=== PATIENT | female | born 1955 | race Caucasian/White ===

== ENCOUNTER 2020-04-17 11:07 | Observation (INO) | payer BC ==
[~2020-04-17] VITALS: Ht 170.2 cm; Wt 134.7 kg
[~2020-04-17 11:07] MED LIST: APAP500 PO; DILTIAZEM 24HR180 M2 PO; HYDROCHLOROTH12.5 M2 PO; LISINOPRIL20 MG PO; PRADAXA150 MG PO
[2020-04-17 11:13] VITALS: BP 130/86
[2020-04-17 12:59] LABS: ABSOLUTE NEUTROPHILS 4.5 thou/uL (1.4-8.2); BASOPHILS 0.5 % (0.0-2.0); EOSINOPHILS 2.5 % (0.0-3.0); HEMATOCRIT 43.7 % (37.0-47.0); HEMOGLOBIN 14.5 gm/dL (12.0-15.0); LYMPHOCYTES 9.1 % (24.0-44.0); MCH 29.6 pg (26.0-34.0); MCHC 33.1 g/dL (28.0-37.0); MCV 89.4 fL (80.0-100.0); MONOCYTES 8.2 % (1.0-8.0); PLATELET COUNT 126 thou/uL (150-400); POLYS 79.7 % (36.0-66.0); RBC 4.89 mil/uL (4.20-5.00); RDW 15.4 % (10.5-14.5); WBC 5.6 thou/uL (4.0-11.0)
[2020-04-17 13:09] LABS: ANION GAP 8 mmol/L (7-16); BUN 20 mg/dL (7-18); CALCIUM 9.5 mg/dL (8.5-10.1); CHLORIDE 106 mmol/L (98-107); CO2 26 mmol/L (21-32); CREATININE 1.1 mg/dL (0.6-1.0); GLUCOSE 133 mg/dL (74-106); POTASSIUM 3.7 mmol/L (3.5-5.1); SODIUM 140 mmol/L (136-145)
[2020-04-17 13:18] LABS: APTT 37.5 Seconds (24.5-32.8); INR 1.3; PROTIME 12.8 Seconds (9.3-11.4)
[2020-04-17 13:19] LABS: ALBUMIN 3.5 g/dL (3.4-5.0); MAGNESIUM 1.8 mg/dL (1.8-2.4); SGOT 13 U/L (15-37); SGPT 20 U/L (30-65); TOTAL BILIRUBIN 0.8 mg/dL (0.2-1.0); TROPONIN-I <0.06 ng/mL (<0.06)
[2020-04-17 13:34] LABS: CHOLESTEROL 140 mg/dL (<200); HDL CHOLESTEROL 49 mg/dL (>40); LDL CHOLESTEROL 72 mg/dL (<100); TC:HDL 2.9 Ratio (Not establshd); TRIGLYCERIDE 96 mg/dL (<150); VLDL 19 mg/dL (<40)
[2020-04-17 14:05] VITALS: BP 130/86
--- NOTE | 2020-04-17 14:16 | NUR ---
ATTMEPTED TO CALL REPORT, WAS TOLD HER NURSE IS "AT LUNCH" AND WILL CALL ME BACK
--- NOTE | 2020-04-17 14:17 | EKG ---
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
--- NOTE | 2020-04-17 16:30 | NUR ---
PT ARRIVED TO UNIT FROM ER AT APPROX 1500. PT ALERT AND ORIENTED.VSS. UP AD JANE, INDEPENDENT FOR SELF. ADMISSION COMPLETE. SUPERVISOR KEY[employer] ASSEMBLY NOTIFIED OF LAB RESULTS. NEW ROOM NUMBER OBTAINED, REPORT CALLED TO ARLEEN STEVENS. PT TRANSFERRED WITH ALL BELONGINGS.
[2020-04-17] MEDS ORDERED: FLECAINIDE ACE100 MG PO (16:35)
[2020-04-17] MEDS ORDERED: METOPROLOL SUCC25 M1 PO (16:35)
[2020-04-17] MEDS ORDERED: ACYCLOVIR 400400 MG PO (16:36)
[2020-04-17] MEDS ORDERED: ATORVASTATIN CA10 MG PO (16:36)
[2020-04-17 16:47] VITALS: BP 143/84
--- NOTE | 2020-04-17 18:21 | NUR ---
PATIENT ADMITTED TO UNIT AT THIS TIME. RESPIRATIONS ARE EVEN NON LABORED. PLEASANT WITH CARE. STARTED ON AMIO DRIP. HR BEING MONITORED.
[2020-04-17 21:07] VITALS: BP 124/82
--- NOTE | 2020-04-17 23:12 | NUR ---
spoke with vance, ordered to continue the 1 mg/ hr amiodarone gtt through the night.
[2020-04-18 05:57] VITALS: BP 147/81
--- NOTE | 2020-04-18 05:58 | NUR ---
CONTINUES ON ROOM AIR, KEEPING O2 SATS GREATER SANCHEZ 95%. SHE AWAKENS EASILY AND IS CHEERFUL. CONTINUES ON TE IV AMIODARONE. NPO PAST MIDNIGHT. SHE IS AWARE OF POSSIBLE CARDIOVERSION THIS AM. CAREPLAN REVIEWED.
--- NOTE | 2020-04-18 06:01 | NUR ---
SITE OF INFILTRATION OF AMIODARONE IS STABLE, LESS RED AND NOT PAINFUL, SOFT TO TOUCH.
[2020-04-18 07:30] VITALS: BP 130/77
[2020-04-18] MEDS ORDERED: PACERONE 200 M200 M1 PO (09:56)
[2020-04-18 11:10] VITALS: BP 141/86
[2020-04-18 15:27] VITALS: BP 145/98
--- NOTE | 2020-04-18 15:41 | NUR ---
ASSUMED CARE OF PT AT 0700. PT ALERT AND ORIENTED X4 IN NO ACUTE DISTRESS. ASYMPTOMATIC. AMIO GTT D/Cd PER CCARDIO - STARTED ON PO. RESWABBED PER ORDER. ANTICIPATE D/C TODAY.
--- NOTE | 2020-04-18 15:52 | NUR ---
DIMA notified by nursing that pt had questions regarding her insurance. DIMA reviewed chart. Pt was admitted from home due to a-fib. Pt had positive COVID test and was transferred to from yesterday afternoon. Pt was on amio gtt and transitioned to PO today. Pt is medically stable for discharge home today and will follow up with cardiology as an outpatient. DIMA spoke with pt via phone. Introduced role of SW. Pt is alert/orientated x 4. Pt wanted to make sure that her insurance was correct on file. DIMA confirmed with pt that she has [employer], which is on file. Discussed with UR RN. Pt to discharge home today. No discharge needs identified. DIMA is available to assist should needs arise.
[2020-04-18 16:44] VITALS: BP 145/98
== END 2020-04-18 17:24 | disposition home or self-care (01) ==
LOC: ER 11:07 → EROBS 14:54 → 3W 14:54 → 2N 14:55 → 3W 16:21
PROVIDERS: Emergency Medicine; ADMIT Hospitalist; ATTEND Hospitalist
DX: U07.1 COVID-19 (principal); I48.91 Unspecified atrial fibrillation; I10 Essential (primary) hypertension; E78.00 Pure hypercholesterolemia, unspecified; E66.9 Obesity, unspecified; C91.10 Chronic lymphocytic leukemia of B-cell type not having achieved remission; Z90.710 Acquired absence of both cervix and uterus; Z98.890 Other specified postprocedural states
CPT/HCPCS: 10879

== ENCOUNTER → 2020-05-31 | Outpatient (CLI) | payer BC ==
[~2020-05-31] VITALS: Ht 172.7 cm; Wt 134.7 kg
[~2020-05-31] MED LIST changes: +ACYCLOVIR 400400 MG PO; +AMIODARONE HCL400 MG PO; +ATORVASTATIN CA10 MG PO; +FLECAINIDE ACE100 MG PO; +METOPROLOL SUCC25 M1 PO; +PACERONE 200 M200 M1 PO; +SYMBICORT160 MCG/4. INH
--- NOTE | ~2020-05-31 | P ---
[facility] [place] [address] [place] [address] PROCEDURE REPORT Name: PEDRO PABLO BRUSH Room #: REG [facility] Uzma#: [id number] Admission: 05/31/20 Attend Phys: José Luis Hawk Discharge: Date of : 57 Report #: [id number] THIS REPORT FOR: cc: Pedro Pablo Snyder MD,Pedro Pablo Hawk,José Luis Luu MD ~ DATE OF SERVICE: 05/31/2020 INDICATION: Symptomatic paroxysmal atrial fibrillation. PROCEDURES: 1. Electrical cardioversion. 2. Supervision of conscious sedation. SEDATION: Conscious sedation, 4 mg of IV Versed and 25 mg of IV Demerol. GRID CASTER: Latrice Hawk MD BRIEF DESCRIPTION OF PROCEDURE: The patient was brought to the cardiac catheterization prep and hold. An informed consent was obtained previously. AP paddles were then placed. Conscious sedation was initiated. Utilizing synchronized shock biphasic at 200 joules, an initial shock was performed, which did not convert the atrial fibrillation persisted. Immediately subsequent to this first shock, a second shock at 200 joules biphasic in AP paddles with 20 pounds of pressure in the chest manually was utilized and converted the patient to sinus bradycardia with PACs. She was monitored continuously with oximetric and electrocardiographic monitoring throughout the procedure. Post-procedure, she was allowed to recover. The patient tolerated the procedure well. COMPLICATIONS: None. RECOMMENDATIONS: Routine post-cardioversion protocol. By: 1016 Lou Hawk MD /john
[2020-05-31 08:25] VITALS: BP 144/91
[2020-05-31 09:07] LABS: HEMATOCRIT 43.1 % (37.0-47.0); MCHC 32.5 g/dL (28.0-37.0); MCV 89.3 fL (80.0-100.0); RBC 4.83 mil/uL (4.20-5.00); RDW 15.5 % (10.5-14.5); WBC 3.5 thou/uL (4.0-11.0)
[2020-05-31 09:12] LABS: CALCIUM 9.5 mg/dL (8.5-10.1); CREATININE 1.2 mg/dL (0.6-1.0); POTASSIUM 4.1 mmol/L (3.5-5.1)
[2020-05-31 09:18] LABS: ALBUMIN 3.8 g/dL (3.4-5.0); TOTAL BILIRUBIN 0.7 mg/dL (0.2-1.0); TOTAL PROTEIN 6.2 g/dL (6.4-8.2)
== END | disposition home or self-care (01) ==
LOC: CATH 08:02
PROVIDERS: ATTEND Internal Medicine
DX: I48.0 Paroxysmal atrial fibrillation (principal); I10 Essential (primary) hypertension; E78.5 Hyperlipidemia, unspecified; E66.09 Other obesity due to excess calories; Z98.890 Other specified postprocedural states; Z79.899 Other long term (current) drug therapy; Z79.01 Long term (current) use of anticoagulants; Z90.710 Acquired absence of both cervix and uterus; Z90.49 Acquired absence of other specified parts of digestive tract

== ENCOUNTER → 2021-06-30 | Outpatient (CLI) | payer OTHER, MEDICARE | LOC: SJCVC 09:13 | PROVIDERS: ATTEND Internal Medicine | DX: R94.31 Abnormal electrocardiogram [ECG] [EKG] (principal); I48.19 Other persistent atrial fibrillation; C91.10 Chronic lymphocytic leukemia of B-cell type not having achieved remission; E78.5 Hyperlipidemia, unspecified; E04.1 Nontoxic single thyroid nodule; Z79.899 Other long term (current) drug therapy; Z90.710 Acquired absence of both cervix and uterus; Z98.890 Other specified postprocedural states; I10 Essential (primary) hypertension ==

== ENCOUNTER → 2021-07-10 | Outpatient (CLI) | payer OTHER, MEDICARE | LOC: SJCVCIMAG 07-07 10:30 | PROVIDERS: ATTEND Internal Medicine Cardiovascular Disease | DX: Z01.810 Encounter for preprocedural cardiovascular examination (principal); I51.7 Cardiomegaly; I48.91 Unspecified atrial fibrillation ==

== ENCOUNTER → 2021-07-30 | Outpatient (CLI) | payer OTHER, MEDICARE ==
[~2021-07-30] VITALS: Ht 170.2 cm; Wt 136.5 kg
[~2021-07-30] MED LIST changes: +ALLEGRA-D 24 H1 EACH PO; +LEVO-T25 MCG PO; +LISINOPRIL10 MG PO; +TAMBOCOR 100 M100 M1 PO
--- NOTE | ~2021-07-30 | P ---
[facility] [place] [place] [id number] PROCEDURE REPORT Name: PEDRO PABLO BRUSH [id number] Admission: 07/30/21 Attend Phys: Brandyn Hercules MD Discharge: Date of : 57 Report #: [id number] THIS REPORT FOR: cc: Pedro Pablo Snyder MD,Pedro Pablo Hercules,Brandyn Schultz MD ~ DATE OF SERVICE: 07/30/2021 PREOPERATIVE DIAGNOSIS: Atrial fibrillation. POSTOPERATIVE DIAGNOSIS: Atrial fibrillation. PROCEDURES PERFORMED: 1. Atrial fibrillation ablation, CPT code 05140. 2. Focal ablation, CPT code 13568. HISTORY: The patient is a 66-year-old female with history of AFib, here for ablation. DESCRIPTION OF PROCEDURE: The patient was brought to the EP laboratory in a fasting and sedated state, prepped and draped in a standard fashion. At baseline, she was noted to be in AFib. I obtained access to the right femoral vein x 3, placing an 8, 9 and 7-Tajik short sheath. Next, I placed a Decapolar catheter in the coronary sinus and ICE catheter in the right atrium for intracardiac ultrasound imaging. The patient was then systemically heparinized and a transseptal was performed using an SL1 sheath and a Deshler needle, which was straightforward. I then exchanged for the cryosheath and placed the Lasso catheter in the left atrium, creating a 3D geometry of the left atrium. Next, the cryoablation catheter was placed in the left atrium. The left superior pulmonary vein underwent a 5-minute followed by 4-minute freeze. The vein isolated during the first freeze at 140 seconds. The left inferior pulmonary vein underwent a 3-minute, followed by 4-minute freeze and isolated during the second freeze at 26 seconds. The right superior pulmonary vein underwent a 4-minute freeze and was isolated. Right inferior pulmonary vein underwent a 180-second freeze and isolated at 36 seconds. Posterior wall isolation. As the patient continued to have AFib, I decided to perform posterior wall isolation. A total of 5 ablation lesions was performed along the posterior wall, each of 3 minutes duration. After completing this, the left atrium was remapped and there was evidence of reconnection of the left inferior pulmonary vein. An additional 4-minute freeze was performed and this isolated at 37 seconds. The right superior pulmonary vein also was reconnected and therefore, I performed an additional 180-second freeze which resulted in isolation. Furthermore, there was still some signals noted along the mid roof region and therefore, I performed 2 additional freezes along the posterior wall with improvement in these signals. As such, the patient underwent a [address] [address] PROCEDURE REPORT Name: PEDRO PABLO BRUSH Room #: REG [facility]#: [id number] Admission: 07/30/21 Attend Phys: Brandyn Hercules MD Discharge: Date of : 57 Report #: [id number] synchronized cardioversion with mormon of sinus rhythm. There are no other arrhythmias noted and on intracardiac ultrasound there is no pericardial effusion. As such, the patient received systemic protamine and once the ACT was within acceptable range, catheters and sheaths were pulled. Hemostasis was obtained. CONCLUSION: 1. Successful AFib ablation and isolation of the pulmonary veins. 2. Successful posterior wall isolation. By: 1243 11 Brandyn Hercules MD /nt
[2021-07-30 07:27] VITALS: BP 113/62
[2021-07-30 07:43] LABS: ABSOLUTE NEUTROPHILS 3.2 thou/uL (1.4-8.2); BASOPHILS 0.5 % (0.0-2.0); EOSINOPHILS 2.5 % (0.0-3.0); HEMATOCRIT 40.9 % (37.0-47.0); HEMOGLOBIN 13.4 gm/dL (12.0-15.0); LYMPHOCYTES 12.3 % (24.0-44.0); MCH 28.1 pg (26.0-34.0); MCHC 32.7 g/dL (28.0-37.0); MCV 85.9 fL (80.0-100.0); MONOCYTES 9.4 % (1.0-8.0); PLATELET COUNT 142 thou/uL (150-400); POLYS 75.3 % (36.0-66.0); RBC 4.76 mil/uL (4.20-5.00); RDW 14.9 % (10.5-14.5); WBC 4.2 thou/uL (4.0-11.0)
[2021-07-30 08:35] LABS: CALCIUM 9.4 mg/dL (8.5-10.1); POTASSIUM 3.9 mmol/L (3.5-5.1)
[2021-07-30 08:41] LABS: ALBUMIN 3.3 g/dL (3.4-5.0); TOTAL BILIRUBIN 0.7 mg/dL (0.2-1.0)
[2021-07-30 08:47] LABS: APTT 31.1 Seconds (24.5-32.8); INR 1.14; PROTIME 12.4 Seconds (10.5-12.1)
== END | disposition home or self-care (01) ==
LOC: CATH 06:34
PROVIDERS: ATTEND Internal Medicine Cardiovascular Disease
DX: I48.91 Unspecified atrial fibrillation (principal); I10 Essential (primary) hypertension; E66.9 Obesity, unspecified; Z98.890 Other specified postprocedural states; Z79.899 Other long term (current) drug therapy; Z90.710 Acquired absence of both cervix and uterus; Z90.49 Acquired absence of other specified parts of digestive tract; Z90.5 Acquired absence of kidney; Z85.858 Personal history of malignant neoplasm of other endocrine glands; Z79.01 Long term (current) use of anticoagulants; Z20.822 Contact with and (suspected) exposure to COVID-19
CPT/HCPCS: 62110; 62900; 65020; 65040; 70005